=== PATIENT | female | born 1985 | race Caucasian/White ===

== ENCOUNTER 2016-10-23 10:51 | Emergency (ER) | payer MEDICAID ==
--- NOTE | 2016-10-23 12:10 | EDM.PDOC ---
ED HISTORY OF PRESENT ILLNESS - General Chief Complaint: Cardiovascular Problem Stated Complaint: ELEVATED BP, VIA [facility]TH Time Seen by Provider: 10/23/16 11:53 Source: Reports: Patient, RN notes reviewed History Limitations: Reports: No limitations - History of Present Illness INITIAL COMMENTS - FREE TEXT/NARRATIVE: 31-year-old female presents to emergency department a complaint of elevated blood pressure and any syncopal events, she's been dealing with her blood pressure for several months the symptoms she feels that her blood pressure gets elevated he has a fullness in the head she had one syncopal event today she denies any other symptoms, last 2 checks her blood pressure been systolic 160 end of September and middle August from clinic notes - Related Data Allergies/ADRs: Allergies Allergy/AdvReac Type Severity Reaction Status Date / Time No Known Allergies Allergy Verified 09/06/16 23:13 Home Meds: Home Meds Albuterol [Ventolin 2 MG/5 ML] 2 puff INH ASDIRECTED 09/06/16 [History] Beclomethasone Dipropionate [Qvar] 1 puff INH BID 09/06/16 [History] Montelukast [Singulair] 10 mg PO DAILY PRN 09/06/16 [History] Past Medical History Respiratory History: Reports: Asthma, COPD 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/BYN History: x 2 Musculoskeletal History: Reports: Fracture Psychiatric History: Reports: Anxiety - Past Surgical History Musculoskeletal Surgical History: Reports: Arthroscopic knee Social & Family History - Tobacco Use Smoking Status *Q: Current Every Day Smoker Years of Tobacco use: 16 Packs/Tins Daily: 0.5 - Caffeine Use Caffeine Use: Reports: Coffee - Alcohol Use Days Per Week of Alcohol Use: 7 Number of Drinks Per Day: 3 Total Drinks Per Week: 21 - Recreational Drug Use Recreational Drug Use: No ED ROS GENERAL - Review of Systems Review Of Systems: See Below Constitutional: Reports: no symptoms HEENT: Reports: Dental pain Respiratory: Reports: no symptoms Cardiovascular: Reports: Syncope, Other (Full head). Denies: Chest pain GI/Abdominal: Reports: No symptoms : Reports: no symptoms Musculoskeletal: Reports: no symptoms Skin: Reports: no symptoms Neurological: Reports: no symptoms ED EXAM, GENERAL - Physical Exam Exam: See Below Free Text/Narrative:: General: Female, not in any distress, alert and oriented x3 HEENT: head is atraumatic normocephalic, eyes pupils equal round reactive to light and accommodation sclera clear no conjunctivitis appreciated. Ears tympanic membranes clear and chandler landmarks and light reflex are present bilaterally canals are clear. Nose no septal deviation, nares are clear, no blood present. Mouth mucosa is moist and pink no erythema or exudate noted in soft palate, tongue is midline uvula is midline, tooth #15 is broken there is some tenderness and fullness around the left side of the mandible. Neck: Supple no thyromegaly no tracheal deviation. Nodes: Cervical nodes subclavicular nodes nontender no palpable lymphadenopathy noted. Lungs: clear to auscultation bilaterally with symmetrical respirations, no adventitious noise appreciated. CV: Regular rate and rhythm S1 and S2 appreciated no murmurs rubs or gallops noted. Abdomen: Soft, nontender, no palpable masses or organomegaly appreciated, no distention no guarding bowel sounds are present, . Neuro: Cranial nerves II through XII grossly intact Skin: Warm and dry, intact Extremities: No lower extremity edema appreciated, Course - Vital Signs Last Recorded V/S: Last Vital Signs Temp 97.5 F 10/23/16 11:39 Pulse 77 10/23/16 11:39 Resp 14 10/23/16 11:39 BP 148/80 H 10/23/16 13:37 Pulse Ox 96 10/23/16 11:39 - Orders/Labs/Meds Orders: Active Orders 24 hr Category Date Time Status EKG Documentation Completion [RC] ASDIRECTED Care 10/23/16 12:06 Active EKG 12 Lead [EK] Stat Ther 10/23/16 12:06 Ordered Labs: Laboratory Tests 10/23/16 10/23/16 10/23/16 Range/Units 12:06 12:09 12:09 WBC 8.2 (4.5-11.0) K/uL RBC 4.12 (3.30-5.50) M/uL Hgb 13.5 (12.0-15.0) g/dL Hct 39.0 (36.0-48.0) % MCV 95 (80-98) fL MCH 33 H (27-31) pg MCHC 35 (32-36) % Plt Count 222 (150-400) K/uL Neut % (Auto) 75 H (36-66) % Lymph % (Auto) 16 L (24-44) % [place] % (Auto) 7 H (2-6) % Eos % (Auto) 2 (2-4) % Baso % (Auto) 1 (0-1) % Sodium 140 (140-148) mmol/L Potassium 4.2 (3.6-5.2) mmol/L Chloride 105 (100-108) mmol/L Carbon Dioxide 27 (21-32) mmol/L Anion Gap 8.1 (5.0-14.0) mmol/L BUN 12 D (7-18) mg/dL Creatinine 0.7 (0.6-1.0) mg/dL Est Cr Clr Drug Dosing 114.28 mL/min Estimated GFR (MDRD) > 60 (>60) Glucose 79 (74-106) mg/dL Calcium 8.9 (8.5-10.1) mg/dL Total Bilirubin 0.7 (0.2-1.0) mg/dL AST 26 (15-37) U/L ALT 52 (12-78) U/L Alkaline Phosphatase 28 L (46-116) U/L Total Protein 7.7 (6.4-8.2) g/dL Albumin 4.5 (3.4-5.0) g/dL Globulin 3.2 (2.3-3.5) g/dL Albumin/Globulin Ratio 1.4 (1.2-2.2) Urine Color Yellow Urine Appearance Clear Urine pH 5.0 (4.5-8.0) Ur Specific [place] 1.025 (1.008-1.030) Urine Protein Negative (NEGATIVE) mg/dL Urine Glucose (UA) Normal (NEGATIVE) mg/dL Urine Ketones 15 H (NEGATIVE) mg/dL Urine Occult Blood Negative (NEGATIVE) Urine Nitrite Negative (NEGATIVE) Urine Bilirubin Negative (NEGATIVE) Urine Urobilinogen Normal (NORMAL) mg/dL Ur Leukocyte Esterase Negative (NEGATIVE) Urine RBC 0-5 (0-5) Urine WBC 0-5 (0-5) Ur Epithelial Cells Many Amorphous Sediment Not seen Urine Bacteria Not seen Urine Mucus Few Meds: Medications Discontinued Medications Generic Name Dose Route Start Last Admin Trade Name Freq PRN Reason Stop Dose Admin Lisinopril 10 mg 10/23/16 13:28 10/23/16 13:37 Prinivil PO 03/06/17 13:29 10 mg ONETIME ONE Administration Departure - Departure Time of Disposition: 14:36 Disposition: Home, Self-Care 01 Condition: good Clinical Impression: Hypertension Qualifiers: Hypertension type: essential hypertension Qualified Code(s): I10 - Essential ( primary) hypertension Forms: ED Department Discharge Additional Instructions: Start lisinopril 1 tablet once a day, Please followup with your primary care provider in 7-10 days if not better, please call return to the emergency department with worsening of symptoms. - My Orders Last 24 Hours: My Active Orders 10/23/16 12:06 EKG Documentation Completion [RC] ASDIRECTED EKG 12 Lead [EK] Stat - Assessment/Plan Last 24 Hours: My Active Orders 10/23/16 12:06 EKG Documentation Completion [RC] ASDIRECTED EKG 12 Lead [EK] Stat Plan: Assessment Acuity = chronic Site and laterality = hypertension Etiology = unclear etiology Manifestations = none Location of injury = home Lab values = CBC, CMP, urinalysis, EKG, chest x-ray all within normal limits Plan Lisinopril 10 mg a day was started last blood pressure 158/98 plan is to follow up with primary care in the next 7-10 days reevaluation blood pressure check prescription written for 30 tablets Patient was in agreement with the plan all questions were answered, they were instructed to return to the emergency department or call for worsening symptoms. This note was dictated using [employer] voice recognition software please call with any questions.
[2016-10-23] MEDS ORDERED: Lisinopril 10 MG Tab PO ONE (13:28)
[2016-10-23 13:38] VITALS: BP 148/80
--- NOTE | 2016-10-23 14:17 | CR ---
Chest 2V HISTORY: Hypertension FINDINGS: The heart and vascular structures are normal in appearance. No infiltrates or effusions ar e demonstrated. There are mild mid thoracic compression deformities. IMPRESSION: 1. No acute findings.
== END 2016-10-23 14:50 | disposition home or self-care (01) ==
LOC: JP.ED 10:51
DX: I10 Essential (primary) hypertension (principal); F17.210 Nicotine dependence, cigarettes, uncomplicated; Z79.899 Other long term (current) drug therapy
CPT/HCPCS: 36415; 71020; 80053; 81001; 85025; 93005; 99284; A9270

== ENCOUNTER 2018-01-29 20:30 | Emergency (ER) | payer MEDICAID ==
[2018-01-29 20:45] VITALS: BP 136/80
--- NOTE | 2018-01-29 21:09 | EDM.PDOC ---
ED HPI GENERAL MEDICAL PROBLEM - General Chief Complaint: Upper Extremity Injury/Pain Stated Complaint: HURT RT HAND Time Seen by Provider: 01/29/18 20:55 Source of Information: Reports: Patient, Old Records, RN History Limitations: Reports: No Limitations - History of Present Illness INITIAL COMMENTS - FREE TEXT/NARRATIVE: 32 yo female hit a wall before arrival and injured her R hand. Is here now for evaluation of this. Most pain to the proximal thumb and PIP of the index finger. 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: Other (see below) (ETOH) Right Hand Pain Score (Numeric/FACES): 8 - Related Data Allergies Allergy/AdvReac Type Severity Reaction Status Date / Time No Known Allergies Allergy Verified 01/29/18 20:53 Home Meds: Home Meds Albuterol [Ventolin 2 MG/5 ML] 2 puff INH ASDIRECTED 09/06/16 [History] Beclomethasone Dipropionate [Qvar] 1 puff INH BID 09/06/16 [History] Montelukast [Singulair] 10 mg PO DAILY PRN 09/06/16 [History] Past Medical History HEENT History: Reports: Allergic Rhinitis, Impaired Vision Cardiovascular History: Reports: Hypertension Respiratory History: Reports: Asthma, COPD 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/BYN History: x 2 Musculoskeletal History: Reports: Fracture Psychiatric History: Reports: Anxiety - Infectious Disease History Infectious Disease History: Reports: Chicken Pox - Past Surgical History Musculoskeletal Surgical History: Reports: Arthroscopic Knee Social & Family History - Family History Family Medical History: Noncontributory - Tobacco Use Smoking Status *Q: Current Every Day Smoker Years of Tobacco use: 16 Packs/Tins Daily: 0.7 - Caffeine Use Caffeine Use: Reports: None - Recreational Drug Use Recreational Drug Use: No Review of Systems - Review of Systems Review Of Systems: See Below Constitutional: Reports: No Symptoms Musculoskeletal: Reports: Hand Pain (R hand) Skin: Reports: No Symptoms Neurological: Reports: No Symptoms ED EXAM, GENERAL - Physical Exam Exam: See Below Exam Limited By: No Limitations General Appearance: Alert, WD/WN, No Apparent Distress, Other (mild intoxication ) Extremities: Joint Swelling (proximal R thumb(mild swelling). Bruising of dorsal R index at PIP jt. ) Neurological: Alert, Oriented, CN II-XII Intact, Normal Cognition, No Motor/ Sensory Deficits Psychiatric: Normal Affect, Normal Mood Skin Exam: Warm, Dry, Intact, No Rash, Ecchymosis (PIP of index dorsally of R hand) Lymphatic: No Adenopathy Course - Vital Signs Last Recorded V/S: Last Vital Signs Temp 36.6 C 01/29/18 20:54 Pulse 95 01/29/18 20:54 Resp 16 01/29/18 20:54 BP 136/80 01/29/18 20:54 Pulse Ox 98 01/29/18 20:54 - Orders/Labs/Meds Orders: Active Orders 24 hr Category Date Time Status Hand Comp Min 3V Rt [CR] Stat Exams 01/29/18 21:04 Ordered - Radiology Interpretation Free Text/Narrative:: R hand X-ray-no fx's seen. metacarpal splint applied per patient request. 2 inch LAURYN and 7 inches of 4 inch Orthoglass used. Departure - Departure Time of Disposition: 21:24 Disposition: Home, Self-Care 01 Condition: Good Clinical Impression: Contusion of right hand Qualifiers: Encounter type: initial encounter Qualified Code(s): S60.221A - Contusion of right hand, initial encounter - Discharge Information Referrals: PCP,None [Primary Care Provider] - Forms: ED Department Discharge - My Orders Last 24 Hours: My Active Orders 01/29/18 21:04 Hand Comp Min 3V Rt [CR] Stat - Assessment/Plan Last 24 Hours: My Active Orders 01/29/18 21:04 Hand Comp Min 3V Rt [CR] Stat
--- NOTE | 2018-01-30 08:35 | CR ---
Hand Comp Min 3V Rt CLINICAL HISTORY: Pain, trauma FINDINGS: There is no acute fracture or dislocation of the hand. Impression: Negative
== END 2018-01-29 21:47 | disposition home or self-care (01) ==
LOC: JP.ED 20:30
DX: S60.221A Contusion of right hand, initial encounter (principal); I10 Essential (primary) hypertension; J45.909 Unspecified asthma, uncomplicated; F17.210 Nicotine dependence, cigarettes, uncomplicated; Z79.899 Other long term (current) drug therapy; W22.8XXA Striking against or struck by other objects, initial encounter
CPT/HCPCS: 29125; 73130-26-RT; 73130-RT; 99284-25